=== PATIENT | female | born 1990 | race Caucasian/White ===

== ENCOUNTER 2025-04-25 13:24 | Emergency (ER) | payer MEDICARE, SELFPAY ==
[~2025-04-25] VITALS: Ht 165.1 cm; Wt 73.2 kg
[2025-04-25] MEDS ORDERED: METH-1164 PO (13:50)
[2025-04-25] MEDS ORDERED: ZOLO50TA PO (13:51)
[2025-04-25] MEDS ORDERED: SERO400T PO (13:52)
[2025-04-25] MEDS ORDERED: HYDR1TAB33 PO (13:53)
[2025-04-25] MEDS ORDERED: CELE100C PO (13:55)
[2025-04-25] MEDS ORDERED: OXCA300T14 PO (13:55)
[2025-04-25] MEDS ORDERED: TOPI1CAP4 PO (13:55)
[2025-04-25] MEDS ORDERED: UBRO100T PO (13:55)
[2025-04-25] MEDS ORDERED: OMEP40CA4 PO (13:55)
[2025-04-25 14:34] LABS: KETONE, URINE AUTO RFX NEGATIVE (NEGATIVE); MUCUS, URINE RFX SMALL (NEGATIVE); NITRITE, URINE AUTO RFX NEGATIVE (NEGATIVE); RBC, URINE AUTO RFX 1 /HPF (0-3); SQUAM EPITHELIAL CELL UR AURFX 3 /HPF (0-6); WBC, URINE AUTO RFX 9 /HPF (0-3)
[2025-04-25 14:48] LABS: LEUKOCYTE ESTERASE UR AUTO RFX 2+ (NEGATIVE)
[2025-04-25 14:48] LABS: HCG, SERUM QUALITATIVE NEGATIVE (NEGATIVE)
[2025-04-25 15:24] LABS: HIV 1&2 SCREEN NEGATIVE (NEGATIVE)
[2025-04-25] MEDS ORDERED: CEPH500C PO (15:36)
[2025-04-25] MEDS ORDERED: VALA1TAB5 PO (15:36)
[2025-04-25] MEDS: CEPHALEXIN 500 MG CAP PO ONE (15:40)
[2025-04-25 15:47] VITALS: BP 130/75; TEMP 97.2; O2SAT 100
[2025-04-25 16:05] LABS: Trichomonas vaginalis (AMP) NOT DETECTED (NEGATIVE)
[2025-04-25 16:28] LABS: GC DNA AMPLIFICATION NEGATIVE (NEGATIVE)
== END 2025-04-25 15:48 | disposition home or self-care (01) ==
LOC: M ED 13:24
DX: B00.9 Herpesviral infection, unspecified (principal); L73.9 Follicular disorder, unspecified; F20.9 Schizophrenia, unspecified; Z90.710 Acquired absence of both cervix and uterus; Z88.8 Allergy status to other drugs, medicaments and biological substances; Z79.899 Other long term (current) drug therapy